=== PATIENT | female | born 2000 | race Caucasian/White ===

== ENCOUNTER 2022-03-20 18:00 | Inpatient (IN) | payer BC, OTHER ==
[2022-03-20] MEDS ORDERED: Ibuprofen 800 MG TAB PO PRN (22:55)
[2022-03-20] MEDS ORDERED: Diphenoxylate HCl/Atropine Tablet PO PRN (22:55)
[2022-03-20] MEDS ORDERED: HYDROcodone/Acetaminophen 5/325 mg Tablet PO PRN (22:55)
[2022-03-20] MEDS ORDERED: Promethazine HCl 25 MG/ML VIAL IM PRN (22:55)
[2022-03-20] MEDS ORDERED: Misoprostol 200 MCG TAB PR PRN (22:55)
[2022-03-20] MEDS ORDERED: Ondansetron PF 4 MG/2 ML Vial IVP PRN (22:55)
[2022-03-20] MEDS ORDERED: Lidocaine 1% (PF) 30 ML VIAL SC PRN (22:55)
[2022-03-20] MEDS ORDERED: hydrALAZINE 20 MG/ML VIAL SLOW IVP PRN (22:55)
[2022-03-20] MEDS ORDERED: Carboprost 250 MCG/ML AMP IM PRN (22:55)
[2022-03-20] MEDS ORDERED: Butorphanol Tartrate 1 MG/ML VIAL SLOW IVP PRN (22:55)
[2022-03-20] MEDS ORDERED: Acetaminophen 500 MG TAB PO PRN (22:55)
[2022-03-20] MEDS ORDERED: Methylergonovine 0.2 MG/ML VIAL IM PRN (22:55)
[2022-03-20] MEDS ORDERED: Oxytocin 10 UNITS/ML VIAL ONE (23:00)
[2022-03-20] MEDS ORDERED: PROPOFOL 200 MG/20 ML VIAL ONE (23:00)
[2022-03-20] MEDS ORDERED: NS w/ Oxytocin 30 units 500 ML IV SCH ×2 (23:00)
[2022-03-20] MEDS ORDERED: Misoprostol 100 MCG TAB VAG SCH (23:00)
[2022-03-20] MEDS ORDERED: Lactated Ringer's 1,000 ML IV SCH (23:00)
[2022-03-20] MEDS ORDERED: Succinylcholine 200 MG/10 ml SYRINGE FS ONE (23:00)
[2022-03-20 23:29] LABS: Hemoglobin 10.7 g/dL (12.0-15.5); Mean Corpuscular HGB CONC 33.1 g/dL (32.0-36.0); Mean Corpuscular Hemoglobin 28.1 pg (27.0-33.0); Mean Corpuscular Volume 84.8 fl (81.6-98.3); Mean Platelet Volume 11.8 fl (7.4-10.4); Platelet Count 288 10x3/uL (150-450); RBC Distribution Width 12.1 % (11.5-14.5); Red Blood Cell (RBC) Count 3.81 10x6/uL (3.90-5.03); White Blood Cell (WBC) Count 8.4 10x3/uL (3.5-10.5)
[2022-03-20 23:39] VITALS: BMI 28.8
[2022-03-20] MEDS ORDERED: CEFAZOLIN 2 GM VIAL ONE (23:40)
[2022-03-20] MEDS ORDERED: Fentanyl 100 MCG/2 ML VIAL ONE (23:53)
[2022-03-20] MEDS ORDERED: Ondansetron PF 4 MG/2 ML Vial ONE (23:56)
[2022-03-20] MEDS ORDERED: Dexamethasone 4 mg/ml Vial ONE (23:56)
[2022-03-21 00:07] LABS: RapidComm Collect By CBN; pH (Cord, venous) 7.284 (7.250-7.350)
[2022-03-21 00:07] LABS: HBSAg Index 0.15 S/CO (0-0.99); Hep B Surf Ag Non-Reactive S/CO (NonReactive)
[2022-03-21 00:08] LABS: Syphilis Antibody Nonreactive (Nonreactive); Syphilis Antibody Index 0.02 S/CO (<1.00 Non-Reactive)
[2022-03-21] MEDS ORDERED: Glycopyrrolate 0.2 MG/ML 5 ML SYRINGE ONE (00:10)
[2022-03-21] MEDS ORDERED: Fentanyl 100 MCG/2 ML VIAL ONE ×2 (00:15→00:36)
[2022-03-21] MEDS ORDERED: Ketorolac Tromethamine 30 MG/ML VIAL ONE (00:27)
[2022-03-21] MEDS ORDERED: Morphine 4 MG/ML VIAL ONE (00:29)
[2022-03-21] MEDS ORDERED: Fentanyl 100 MCG/2 ML VIAL SLOW IVP PRN (00:46)
[2022-03-21] MEDS ORDERED: HYDROmorphone 2 MG/ML VIAL SLOW IVP PRN (00:46)
[2022-03-21] MEDS ORDERED: Naloxone HCl 0.4 mg/ml Vial IV PRN ×2 (00:46)
[2022-03-21] MEDS ORDERED: Ondansetron HCl/PF 4 MG/2 ML Vial IVP PRN (00:46)
[2022-03-21] MEDS ORDERED: Meperidine HCl/PF 25 MG/ML VIAL SLOW IVP PRN (00:46)
[2022-03-21] MEDS ORDERED: Naloxone HCl 0.4 mg/ml Vial IVP PRN ×2 (00:46)
[2022-03-21] MEDS ORDERED: HYDROmorphone 10 mg/100 ml CADD IVPB PRN (00:46)
[2022-03-21] MEDS ORDERED: diphenhydrAMINE 50 MG/ML VIAL IM PRN (00:46)
[2022-03-21] MEDS ORDERED: Zolpidem Tartrate 5 MG TAB PO PRN (00:46)
[2022-03-21] MEDS ORDERED: Moisturizing Cream (Eucerin) 113 GM JAR TOP PRN (00:46)
[2022-03-21] MEDS ORDERED: Promethazine HCl 25 MG/ML VIAL IM PRN ×2 (00:46)
[2022-03-21] MEDS ORDERED: diphenhydrAMINE 50 MG/ML VIAL IVP PRN ×2 (00:46)
[2022-03-21] MEDS ORDERED: Promethazine HCl 25 MG SUPP PR PRN (00:46)
[2022-03-21] MEDS ORDERED: diphenhydrAMINE 25 MG CAP PO PRN ×2 (00:46→04:22)
[2022-03-21] MEDS ORDERED: Ondansetron PF 4 MG/2 ML Vial IVP PRN ×3 (00:46→04:22)
[2022-03-21] MEDS ORDERED: Communication Order-Pharmacy FS SCH ×2 (01:00)
[2022-03-21] MEDS ORDERED: HYDROmorphone/PF 10 MG in Sodium Chloride 0.9% 49 ML IVPB PRN (01:00)
[2022-03-21] MEDS ORDERED: Boostrix 0.5 ML (Tdap) VIAL (>/=7 yrs of age) IM ONE (04:22)
[2022-03-21] MEDS ORDERED: Bisacodyl 10 MG SUPP PR PRN (04:22)
[2022-03-21] MEDS ORDERED: Misoprostol 200 MCG TAB PR PRN (04:22)
[2022-03-21] MEDS ORDERED: hydrALAZINE 20 MG/ML VIAL SLOW IVP PRN (04:22)
[2022-03-21] MEDS ORDERED: Methylergonovine 0.2 MG/ML VIAL IM PRN (04:22)
[2022-03-21] MEDS ORDERED: Simethicone Chewable 80 MG TAB PO PRN (04:22)
[2022-03-21] MEDS ORDERED: NS w/ Oxytocin 30 units 500 ML IV SCH (04:30)
[2022-03-21] MEDS: Lactated Ringer's 1,000 ML IV SCH ×4 (04:54→21:45)
[2022-03-21] MEDS: Ketorolac Tromethamine 30 MG/ML VIAL IVP PRN ×3 (06:06→19:59)
[2022-03-21 06:56] LABS: SARS-CoV-2 NAA Rapid Test Not Detected (NotDetected)
[2022-03-21] MEDS: Docusate 100 MG CAP PO SCH ×2 (08:29→21:35)
[2022-03-21] MEDS: Prenatal Vitamin 1 TAB PO SCH (08:29)
[2022-03-21] MEDS: Ferrous Sulfate 325 MG TAB PO SCH ×2 (09:22→21:45)
[2022-03-21] MEDS: HYDROcodone/Acetaminophen 5/325 mg Tablet PO PRN ×2 (17:14→23:31)
[2022-03-22 04:42] LABS: Hemoglobin 8.3 g/dL (12.0-15.5); Mean Corpuscular HGB CONC 32.2 g/dL (32.0-36.0); Mean Corpuscular Hemoglobin 27.8 pg (27.0-33.0); Mean Corpuscular Volume 86.3 fl (81.6-98.3); Mean Platelet Volume 11.8 fl (7.4-10.4); Platelet Count 159 10x3/uL (150-450); RBC Distribution Width 12.1 % (11.5-14.5); Red Blood Cell (RBC) Count 2.99 10x6/uL (3.90-5.03)
[2022-03-22] MEDS: Ibuprofen 800 MG TAB PO SCH ×3 (05:13→21:15)
[2022-03-22] MEDS ORDERED: Ibuprofen 800 MG TAB PO PRN (06:30)
[2022-03-22] MEDS: HYDROcodone/Acetaminophen 5/325 mg Tablet PO PRN ×4 (06:31→21:16)
[2022-03-22] MEDS: Docusate 100 MG CAP PO SCH ×2 (08:12→21:15)
[2022-03-22] MEDS: Prenatal Vitamin 1 TAB PO SCH (08:12)
[2022-03-22] MEDS: Ferrous Sulfate 325 MG TAB PO SCH ×2 (08:12→21:22)
[2022-03-22] MEDS: Lactated Ringer's 1,000 ML IV SCH (13:20)
[2022-03-23] MEDS: Lactated Ringer's 1,000 ML IV SCH ×3 (01:58→19:23)
[2022-03-23] MEDS: HYDROcodone/Acetaminophen 5/325 mg Tablet PO PRN ×4 (02:13→18:13)
[2022-03-23] MEDS: Ibuprofen 800 MG TAB PO SCH ×3 (05:18→21:51)
[2022-03-23] MEDS: Prenatal Vitamin 1 TAB PO SCH (08:23)
[2022-03-23] MEDS: Docusate 100 MG CAP PO SCH ×2 (08:23→21:51)
[2022-03-23] MEDS: Ferrous Sulfate 325 MG TAB PO SCH ×2 (08:24→22:19)
[2022-03-23] MEDS: lamoTRIgine 100 MG TAB PO SCH (08:28)
[2022-03-24] MEDS: HYDROcodone/Acetaminophen 5/325 mg Tablet PO PRN ×3 (04:01→10:24)
[2022-03-24] MEDS: Ibuprofen 800 MG TAB PO SCH (05:08)
[2022-03-24 07:56] VITALS: BP 117/77; TEMP 98.5
[2022-03-24] MEDS: Ferrous Sulfate 325 MG TAB PO SCH ×2 (08:35→08:36)
[2022-03-24] MEDS: Prenatal Vitamin 1 TAB PO SCH (08:36)
[2022-03-24] MEDS: Docusate 100 MG CAP PO SCH (08:36)
[2022-03-24] MEDS: lamoTRIgine 100 MG TAB PO SCH (10:28)
== END 2022-03-24 10:40 | disposition home or self-care (01) | DRG 788 ==
LOC: CSHLD 22:12 → CSHPP 03-21 03:40
PROVIDERS: ADMIT Student in an Organized Health Care Education/Training Program; ATTEND Student in an Organized Health Care Education/Training Program
PROC: 10D00Z1 Extraction of Products of Conception, Low, Open Approach (ICD-10-PCS; principal; 2022-03-21)
DX: O36.5930 Maternal care for other known or suspected poor fetal growth, third trimester, not applicable or unspecified (principal); Z3A.38 38 weeks gestation of pregnancy; Z37.0 Single live birth; O76 Abnormality in fetal heart rate and rhythm complicating labor and delivery; Z20.822 Contact with and (suspected) exposure to COVID-19; O69.81X0 Labor and delivery complicated by cord around neck, without compression, not applicable or unspecified; F31.9 Bipolar disorder, unspecified; O99.344 Other mental disorders complicating childbirth; Z90.49 Acquired absence of other specified parts of digestive tract; Z90.89 Acquired absence of other organs; O99.844 Bariatric surgery status complicating childbirth
CPT/HCPCS: 36415; 51702; 72170; 82805; 85027; 86780; 86850; 86900; 86901; 87340; 88307; J1100; J1170; J1200; J1885; J2270; J2405; J2590; J2704; J3010; J3490; U0002